=== PATIENT | male | born 1975 | race Caucasian/White ===

== ENCOUNTER 2020-10-31 10:15 | Emergency (ER) | payer SELFPAY ==
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
[2020-10-31 12:20] VITALS: BP 130/91; PULSE 66; RESP 20; TEMP 36.8; O2SAT 100
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
[2020-10-31] MEDS: KETOROLAC (*BKC) 60 MG/2 ML VIAL IM (13:47)
[2020-10-31 14:00] VITALS: BP 133/94; PULSE 75; RESP 20; TEMP 36.7; O2SAT 100
== END 2020-10-31 14:21 | disposition home or self-care (01) ==
PROVIDERS: Emergency Provider Emergency Medicine
DX: S42.017A Nondisplaced fracture of sternal end of right clavicle, initial encounter for closed fracture (principal); V19.9XXA Pedal cyclist (driver) (passenger) injured in unspecified traffic accident, initial encounter
CPT/HCPCS: 71046; 73000; 96372; 99283; 99284; A4565; J1885